=== PATIENT | male | born 1975 | race Two or more races ===

== ENCOUNTER 2016-05-24 10:29 | Emergency (ER) | payer SELFPAY ==
[~2016-05-24] VITALS: Ht 175.3 cm; Wt 89.8 kg
[2016-05-24 10:42] VITALS: BP 117/70
[2016-05-24] MEDS ORDERED: NAPROXEN 500 MG TABLET PO STA (10:44)
[2016-05-24] MEDS ORDERED: HYDROCODONE/APAP 5/325MG TABLET. PO ONE (10:45)
--- NOTE | 2016-05-24 10:59 | PHYS DOC ---
Past Medical History Past Medical History: No Pertinent History Past Surgical History: No Surgical History Additional Information: SMOKES ON WEEKENDS, MAYBE 10 CIGARETTES Alcohol Use: Heavy Additional Information: DRINKS A BEER OR 2 A DAY Drug Use: None Adult General Chief Complaint Chief Complaint: LOWEREXTREMITY INJURY HPI HPI Patient is a 40 year old male who presents with mild right lower extremity pain that began last night after he tripped and fell walking on a alley at home. Patient denies any loss of consciousness. Review of Systems Review of Systems Constitutional: Denies fever or chills [] Eyes: Denies change in visual acuity, redness, or eye pain [] HENT: Denies nasal congestion or sore throat [] Respiratory: Denies cough or shortness of breath [] Cardiovascular: No additional information not addressed in HPI [] GI: Denies abdominal pain, nausea, vomiting, bloody stools or diarrhea [] : Denies dysuria or hematuria [] Musculoskeletal: Right lower extremity pain Integument: Denies rash or skin lesions [] Neurologic: Denies headache, focal weakness or sensory changes [] Endocrine: Denies polyuria or polydipsia [] Current Medications Current Medications Current Medications Medications (Trade) Dose Ordered Sig/Jerome Start Time Stop Time Status Last Admin Dose Admin Acetaminophen/ Hydrocodone Bitart (Lortab 5/325) 2 tab 1X ONCE 05/24/16 10:45 05/24/16 10:46 DC 05/24/16 10:55 2 TAB Naproxen (Naprosyn) 500 mg 1X STAT 05/24/16 10:44 05/24/16 10:46 DC 05/24/16 10:55 500 MG Allergies Allergies Allergies Coded Allergies Type Severity Reaction Last Updated Verified No Known Drug Allergies 05/24/16 No Physical Exam Physical Exam Constitutional: Well developed, well nourished, no acute distress, non-toxic appearance. [] HENT: Normocephalic, atraumatic, bilateral external ears normal, oropharynx moist, no oral exudates, nose normal. [] Eyes: PERRLA, EOMI, conjunctiva normal, no discharge. [] Neck: Normal range of motion, no tenderness, supple, no stridor. [] Cardiovascular:Heart rate regular rhythm, no murmur [] Lungs & Thorax: Bilateral breath sounds clear to auscultation [] Abdomen: Bowel sounds normal, soft, no tenderness, no masses, no pulsatile masses. [] Skin: Warm, dry, no erythema, no rash. [] Back: No tenderness, no CVA tenderness. [] Extremities: Right distal medial lege with an area of ecchymosis approx 3X3cm. Tenderness to the area as well. Limited range of motion to the right lower extremity due to pain. +2 right pedal pulse. Cap refill less than 2 seconds the right lower extremity. Sensation intact to the right lower extremity. Neurologic: Alert and oriented X 3, normal motor function, normal sensory function, no focal deficits noted. [] Psychologic: Affect normal, judgement normal, mood normal. [] Current Patient Data Vital Signs Vital Signs Date Time Temp Pulse Resp B/P Pulse Ox O2 Delivery O2 Flow Rate FiO2 05/24/16 10:55 18 Room Air 05/24/16 10:42 99.1 107 117/70 100 99.1 EKG EKG [] Radiology/Procedures Radiology/Procedures []PROCEDURE: TIBIA FIBULA RIGHT TIBIA FIBULA RIGHT History:Pain, twisted leg this morning at 2 am Comparison: None Findings:4 views of the right tibia-fibula are submitted. There is a comminuted, posttraumatic, spiral fracture of the distal tibia shaft with mild displacement. There is also nondisplaced spiral fracture of the proximal fibula shaft. Impression: 1.There are acute spiral fractures of the proximal fibula and the distal tibia. DICTATED and SIGNED BY: HOMER DIZA MD DATE: 05/24/16 1128 CC: LIZ ALONZO APRN ~ Course & Med Decision Making Course & Med Decision Making Pertinent Labs and Imaging studies reviewed. (See chart for details) Patient is in the ED right lower extremity pain that began last night after falling. Right tib-fib x-rays interpreted by radiologist are positive for acute spinal fractures of the proximal fibula and distal Tibia. Consulted with Dr. Jerez. He requested we splint the patient and have him follow-up as an outpatient in the clinic on Thursday. Patient was placed in a stirrup splint by the heat treat technician. Neurovascular exam done by me is normal, cap refill less than 2 seconds. Ice elevation encouraged. Patient already has crutches. Discharged with hydrocodone for pain. Dragon Disclaimer Dragon Disclaimer This electronic medical record was generated, in whole or in part, using a voice recognition dictation system. Departure Departure Impression: Primary Impression: Fall from standing Additional Impressions: Tibial fracture Left fibular fracture Disposition: 01 HOME, SELF-CARE Condition: STABLE Referrals: MICHEL JEREZ MD Called Dr. Jerez's office for follow-up on Thursday Patient Instructions: Fibular Fracture with [facility], Tibial Fracture, Adult Additional Instructions: You were seen for TB and fibular fractures. Call Dr. Jerez's office the orthopedic doctor on Thursday to set up a follow-up appointment. Do not put any weight on the left lower extremity. Ice and elevate the extremity. Take the prescribed medicines as needed for pain. Come back to the emergency room for any concerning symptoms Scripts Naproxen 500 Mg Tablet.dr1 Tab PO BID #60 TAB Ref 2 Prov:LIZ ALONZO APRN 05/24/16 Hydrocodone/Apap 5-325 (Deary 5-325 Tablet)1 Each Tablet1-2 Tab PO Q4-6HRS #30 TAB Prov:LIZ ALONZO APRN 05/24/16 Problem Qualifiers Primary Impression: Fall from standing Encounter type: initial encounter Qualified Code: W19.XXXA - Unspecified fall, initial encounter Additional Impressions: Tibial fracture Encounter type: initial encounter Tibia location: shaft Fracture type: closed Fracture morphology: spiral Fracture alignment: displaced Laterality : left Qualified Code: S82.242A - Displaced spiral fracture of shaft of left tibia, initial encounter for closed fracture Left fibular fracture Encounter type: initial encounter Fibula location: shaft Fracture type: closed Fracture morphology: spiral Fracture alignment: nondisplaced Qualified Code: S82.445A - Nondisplaced spiral fracture of shaft of left fibula , initial encounter for closed fracture COLINCARENLIZ [employer] May 24, 2016 10:59
--- NOTE | 2016-05-24 11:32 | RAD ---
TIBIA FIBULA RIGHT History:Pain, twisted leg this morning at 2 am Comparison: None Findings:4 views of the right tibia-fibula are submitted. There is a comminuted, posttraumatic, spiral fracture of the distal tibia shaft with mild displacement. There is also nondisplaced spiral fracture of the proximal fibula shaft. Impression: 1.There are acute spiral fractures of the proximal fibula and the distal tibia.
[2016-05-24] MEDS ORDERED: NAPR500T8 PO (12:25)
[2016-05-24] MEDS ORDERED: HYDR-971 PO (12:25)
== END 2016-05-24 12:58 | disposition home or self-care (01) ==
LOC: ER 10:29
DX: S82.241A Displaced spiral fracture of shaft of right tibia, initial encounter for closed fracture (principal); S82.444A Nondisplaced spiral fracture of shaft of right fibula, initial encounter for closed fracture; F17.210 Nicotine dependence, cigarettes, uncomplicated; W01.0XXA Fall on same level from slipping, tripping and stumbling without subsequent striking against object, initial encounter; Y93.01 Activity, walking, marching and hiking; Y99.8 Other external cause status; Y92.89 Other specified places as the place of occurrence of the external cause
CPT/HCPCS: 29515; 73590; 99284-25

== ENCOUNTER 2016-06-13 10:06 | Emergency (ER) | payer SELFPAY ==
[~2016-06-13] VITALS: Ht 172.7 cm; Wt 90.7 kg
[~2016-06-13 10:06] MED LIST: HYDR-971 PO; NAPR500T8 PO
--- NOTE | 2016-06-13 11:08 | RAD ---
Exam performed: 2 views right tibia fibula. History: Patient came to the ER with a fracture tibia on 05/24/16, never followed up with orthopedic surgeon. Given today with increasing pain right leg. Patient has been walking on the right. Date of service: 06/13/16. Comparison: 05/24/16. AP and lateral view right tibia fibula findings: There is a oblique spiral fracture mid to distal right tibia and proximal fibula. The fractures appear stable. The knee and ankle joint appears essentially preserved. Impression: Unchanged appearance of oblique spiral fracture distal tibia and proximal tibia.
[2016-06-13] MEDS ORDERED: OXYC-323 PO (12:35)
[2016-06-13] MEDS ORDERED: NAPR250T2 PO (12:35)
[2016-06-13] MEDS ORDERED: OXYCODONE/APAP 5/325 TABLET. PO ONE (12:45)
[2016-06-13] MEDS ORDERED: NAPROXEN 250 MG TABLET PO ONE (12:45)
[2016-06-13 12:53] VITALS: BP 116/84
--- NOTE | 2016-06-13 16:10 | ED.ADGEN ---
Past Medical History Past Medical History: Other Additional Past Medical Histor: R FIB/TIB FX Past Surgical History: No Surgical History Additional Information: 0.5 PPD Alcohol Use: Heavy Additional Information: SIGNIFICANT OTHER REPORTS, "HE DRINKS A COUPLE OF SHOTS OF TEQUILA ON THE WEEKENDS.' Drug Use: None Adult General Chief Complaint Chief Complaint: LOWEREXTREMITY INJURY HPI HPI Patient is a 40 year old man, history of a right distal tibia, anterior fibula is a fracture, which was splinted 3 weeks ago, who presents to the emergency department with a splint still in place. Patient complains of pain in his leg has been persistent, states that he has been pulling the splint "tighter", to stabilize legacy "feel the bones moving". Patient states that he fell today in the bathroom. Noted to have swelling of the foot, as the splint is wrapped extremity tightly with an Jn wrap. He denies any new injuries, states he has not followed up with orthopedics as instructed. Denies any other complaints. Review of Systems Review of Systems Constitutional: Denies fever or chills. [] Eyes: Denies change in visual acuity. [] HENT: Denies nasal congestion or sore throat. [] Respiratory: Denies cough or shortness of breath. [] Cardiovascular: Denies chest pain or edema. [] GI: Denies abdominal pain, nausea, vomiting, bloody stools or diarrhea. [] : Denies dysuria. [] Musculoskeletal: Denies back pain, pain in the right lower extremity. Integument: Denies rash. [] Neurologic: Denies headache, focal weakness or sensory changes. [] Endocrine: Denies polyuria or polydipsia. [] Lymphatic: Denies swollen glands. [] Psychiatric: Denies depression or anxiety. [] Current Medications Current Medications Current Medications Medications (Trade) Dose Ordered Sig/Jerome Start Time Stop Time Status Last Admin Dose Admin Naproxen (Naprosyn) 250 mg 1X ONCE 06/13/16 12:45 06/13/16 12:46 DC 06/13/16 12:50 250 MG Oxycodone/ Acetaminophen (Percocet 5/325) 1 tab 1X ONCE 06/13/16 12:45 06/13/16 12:46 DC 06/13/16 12:51 1 TAB Allergies Allergies Allergies Coded Allergies Type Severity Reaction Last Updated Verified No Known Drug Allergies 2/11/17 No Physical Exam Physical Exam Constitutional: Well developed, well nourished, no acute distress, non-toxic appearance. [] HENT: Normocephalic, atraumatic, bilateral external ears normal, oropharynx moist, no oral exudates, nose normal. [] Eyes: PERRLA, EOMI, conjunctiva normal, no discharge. [] Neck: Normal range of motion, no tenderness, supple, no stridor. [] Cardiovascular:Heart rate regular rhythm, no murmur, S1, S2, no rubs or gallops. [] Lungs & Thorax: Bilateral breath sounds clear to auscultation, no wheezing, rhonchi, rales. No chest wall tenderness or crepitus. [] Abdomen: Bowel sounds normal, soft, no tenderness, no masses, no pulsatile masses. [] Skin: Warm, dry, no erythema, no rash. [] Back: No tenderness, no CVA tenderness. [] Extremities: Patient with no external signs of trauma, moving toes without difficulty, mild swelling of the foot noted circumferentially, pulses are intact and equal bilaterally, no cyanosis, no clubbing, no edema. [] Neurologic: Alert and oriented X 3, normal motor function, normal sensory function, no focal deficits noted. [] Psychologic: Affect normal, judgement normal, mood normal. [] Current Patient Data Vital Signs Vital Signs Date Time Temp Pulse Resp B/P Pulse Ox O2 Delivery O2 Flow Rate FiO2 06/13/16 12:53 107 18 116/84 96 Room Air 06/13/16 10:28 98.6 98.6 EKG EKG Not indicated [] Radiology/Procedures Radiology/Procedures [] [facility] [address] [place] [address] IMAGING REPORT Signed PATIENT: YANETH KING ACCOUNT: [id number] : 1975 LOCATION: ER AGE: 40 SEX: M EXAM STATUS: REG ER ORD. PHYSICIAN: CASIE WILLIAMSON DO REASON: hx frx/fall PROCEDURE: TIBIA FIBULA RIGHT Exam performed: 2 views right tibia fibula. History: Patient came to the ER with a fracture tibia on 05/24/16, never followed up with orthopedic surgeon. Given today with increasing pain right leg. Patient has been walking on the right. Date of service: 06/13/16. Comparison: 05/24/16. AP and lateral view right tibia fibula findings: There is a oblique spiral fracture mid to distal right tibia and proximal fibula. The fractures appear stable. The knee and ankle joint appears essentially preserved. Impression: Unchanged appearance of oblique spiral fracture distal tibia and proximal tibia. DICTATED and SIGNED BY: AVA CROFT MD DATE: 06/13/16 1104 CC: CASIE WILLIAMSON DO; NO PCP ~ Course & Med Decision Making Course & Med Decision Making Pertinent Labs and Imaging studies reviewed. (See chart for details) Patient well-appearing, x-ray findings reveal essentially unchanged tib-fib fracture from prior x-ray. No new findings identified. No new injuries identified and examination are patient history. Lengthy discussion at bedside with patient using gas system operator, nurse Goldie, ports of using splint as directed, keeping this level being too tight, and using crutches as directed, findings as above discussed with Dr. Sepulveda of orthopedics, should to follow-up with Dr. Jerez, to whom he was referred on his initial visit. Patient was given a dose of Percocet, and naproxen in the ED, crutch walking demonstrated without issue. Patient discharged home with clear and detailed return instructions and precautions for medications and follow-up as stated, with his significant other. Dragon Disclaimer Dragon Disclaimer This electronic medical record was generated, in whole or in part, using a voice recognition dictation system. Departure Impression: Primary Impression: Tibial fracture Additional Impressions: Fall from standing Right fibular fracture Disposition: HOME, SELF-CARE Condition: IMPROVED Scripts Oxycodone/Apap 5-325 (Percocet 5-325 Mg Tablet)1 Each Tablet1 Tab PO PRN Q6HRS PRN PAIN #12 TAB Ref 0 Prov:CASIE WILLIAMSON DO 06/13/16 Naproxen 250 Mg Aenexs265 Mg PO BID PRN PAIN #10 Prov:CASIE WILLIAMSON DO 06/13/16 Splinting Patient informed of findings. Long-leg U-splint applied by [employer]. The splint is checked by myself, Dr. Williamson, with appropriate stabilization of the injury. Distal capillary refill and distal neurologic function intact pre-and post-splinting procedure. Problem Qualifiers Primary Impression: Tibial fracture Encounter type: subsequent encounter Tibia location: distal Fracture type: closed Fracture morphology: unspecified fracture morphology Laterality: right Fracture healing: with nonunion Qualified Code: S82.301K - Unspecified fracture of lower end of right tibia, subsequent encounter for closed fracture with nonunion Additional Impressions: Fall from standing Encounter type: initial encounter Qualified Code: W19.XXXA - Unspecified fall, initial encounter Right fibular fracture Encounter type: subsequent encounter Fibula location: proximal Fracture type: closed Fracture morphology: unspecified fracture morphology Fracture healing: with delayed healing Qualified Code: S82.831G - Other fracture of upper and lower end of right fibula, subsequent encounter for closed fracture with delayed healing CASIE WILLIAMSON DO Jun 13, 2016 16:10
== END 2016-06-13 12:53 | disposition home or self-care (01) ==
LOC: ER 10:06
DX: S82.241 Displaced spiral fracture of shaft of right tibia (principal); S82.231K Displaced oblique fracture of shaft of right tibia, subsequent encounter for closed fracture with nonunion; S82.431G Displaced oblique fracture of shaft of right fibula, subsequent encounter for closed fracture with delayed healing; S82.44 Spiral fracture of shaft of fibula; F10.10 Alcohol abuse, uncomplicated; F17.210 Nicotine dependence, cigarettes, uncomplicated; W18.39XD Other fall on same level, subsequent encounter
CPT/HCPCS: 29505; 73590; 99284